=== PATIENT | male | born 1940 | race Caucasian/White ===

== ENCOUNTER 2017-03-22 09:26 | Day surgery (SDC) | payer MEDICARE, BC ==
[2017-03-20 07:59] VITALS: BMI 20.2
[2017-03-22 10:38] VITALS: RESP 18
[2017-03-22] MEDS ORDERED: Midazolam 2 MG/2 ML VIAL ONE ×2 (13:03→13:44)
[2017-03-22] MEDS ORDERED: Iodixanol 320 MG/ML 100 ML BOTTLE IV ONE (13:04)
[2017-03-22] MEDS ORDERED: Iodixanol 320 MG/ML 200 ML BOTTLE IV ONE (13:04)
[2017-03-22] MEDS ORDERED: Sodium Chloride 0.9% 1,000 ML IV ONE (15:40)
[2017-03-22 16:03] VITALS: TEMP 97
[2017-03-22] MEDS ORDERED: Sodium Chloride 0.9% 500 ML IV ONE (16:15)
[2017-03-22 16:58] VITALS: BP 132/74; PULSE 70; O2SAT 100
--- NOTE | 2017-03-22 18:12 | CP.SDSHP ---
Same Day Surgery H & P - History Proposed Procedure: see office note. no change - Allergies Allergies: Allergies No Known Allergies Allergy (Verified 03/20/17 08:04) - Physical Exam Vital Signs: Vital Signs 03/22/17 03/22/17 03/22/17 15:40 15:55 16:10 Temperature 97 F L Pulse Rate 65 65 67 Respiratory 18 18 18 Rate Blood Pressure 142/75 140/75 145/80 O2 Sat by Pulse 99 99 99 Oximetry 03/22/17 16:57 Temperature Pulse Rate 70 Respiratory 18 Rate Blood Pressure 132/74 O2 Sat by Pulse 100 Oximetry Short Stay Discharge - Short Stay Discharge Admitting Diagnosis/Reason for Visit: PERIPHERAL VASCULAR DISEASE, UNSPECIFIED Disposition: HOME/ ROUTINE
--- NOTE | 2017-03-22 20:45 | OP ---
PROCEDURE DATE: 03/22/2017 PREOPERATIVE DIAGNOSES: Peripheral vascular disease with claudication. POSTOPERATIVE DIAGNOSES: Peripheral vascular disease with claudication. PROCEDURE PERFORMED: Retrograde access, left common femoral artery, selective catheter placement in the right popliteal artery via contralateral approach, abdominal aortography with bilateral iliofemor al runoff, bilateral lower extremity angiography, selective angiography, right popliteal artery, drug -coated balloon angioplasty, right popliteal artery. COMPLICATIONS: None. HISTORY: The patient is a 76-year-old male with a past medical history of hypertension, hypercholest erolemia, coronary artery disease, status post coronary stenting and peripheral vascular disease, sta tus post right fem-pop bypass, who has severe claudication. The patient's symptoms occur with walkin g less than 1 block. He has characteristic pain in the right calf. Arterial duplex performed in an outside facility revealed severe stenosis of the right popliteal artery, just distal to the saphenous vein graft anastomosis. The patient is referred for angiography. DESCRIPTION OF PROCEDURE: After obtaining informed consent, the patient was prepped and draped in [facility] sterile fashion. The left groin was anesthetized with 2% lidocaine solution. A 5-[place] sheath was inserted into the left common femoral artery via modified Seldinger technique. An Omniflush cath eter was advanced to infrarenal abdominal aorta. Abdominal aortography was performed. The catheter was positioned at the iliac bifurcation. Bilateral iliofemoral runoff was performed. Intervention w as performed, described separately below. FINDINGS: The infrarenal abdominal aorta is mildly ectatic. Bilateral renal arteries arise normally and revealed no significant atherosclerosis. There is a 20% stenosis of the ostium of the right com mon iliac artery. Mild disease is noted in bilateral common iliac arteries. The inflow vessels reve al mild diffuse disease. In the left leg, the left deep femoral artery has mild disease. The left s uperficial femoral artery has mild atherosclerosis. The left popliteal artery has no significant dis ease and there is 3-vessel runoff to the left foot. The right leg has had a previous right fem-pop bypass. The graft is patent. The right superficial f emoral artery is occluded 100%. The graft is anastomosed to the mid popliteal artery. Just di stal to the anastomosis, there is a 90% stenosis. There is 3-vessel runoff to the right foot. INTERVENTION: The patient was prepared for intervention. A stiff-angled Glidewire was directed to t he right femoral popliteal graft via the contralateral left access. The 5-[place] sheath was exchange d for a 6 cm x 45 cm Whe[place] destination sheath, which was placed selectively in the saphenous vein gr aft. An [employer] ES guidewire was advanced to the graft to the right popliteal artery. Angiop lasty of the mid right popliteal artery was performed with a 4 x 40 mm balloon at nominal pressure. There was a residual 40% stenosis. The balloon was removed. The [employer] Lutonix 5 mm x 60 mm drug-coat ed balloon was positioned and prolonged drug-coated balloon inflation was performed for 2 minutes. T his resulted in markedly improved luminal diameter with residual 10% stenosis. Brisk antegrade flow was noted in all tibial vessels. The guidewire was removed and the sheath was exchanged for a short 6-[place] sheath. An Angio-Seal device was deployed successfully to achieve hemostasis without compli cation. CONCLUSION: Successful drug-coated balloon angioplasty of the mid right popliteal artery. PLAN: The patient will continue with antiplatelet therapy. He will be discharged the same hospital day. Vernon Peterson MD cc: [id number] TT: 03/22/2017 20:44:05 ed
== END 2017-03-22 17:28 | disposition home or self-care (01) ==
LOC: C.CATHLAB 09:26
PROVIDERS: ATTEND Internal Medicine Cardiovascular Disease
DX: I70.211 Atherosclerosis of native arteries of extremities with intermittent claudication, right leg (principal); I73.9 Peripheral vascular disease, unspecified; I25.10 Atherosclerotic heart disease of native coronary artery without angina pectoris
CPT/HCPCS: 36247; 37224; 37236; 75625; 75716; 75774; C1725; C1760; C1766; C1769; C1887; C2623; J1644; J2250; J3010; J7040; Q9966; Q9967